=== PATIENT | female | born 1955 | race Caucasian/White ===

== ENCOUNTER → 2020-07-09 | Outpatient (CLI) | payer BC | LOC: KOH-I 10:56 | DX: M79.671 Pain in right foot (principal); S93.144A Subluxation of metatarsophalangeal joint of right lesser toe(s), initial encounter; X58.XXXA Exposure to other specified factors, initial encounter | CPT/HCPCS: 73630 ==

== ENCOUNTER → 2020-09-06 | Outpatient (CLI) | payer MEDICARE | LOC: KOH-I 08:00 | DX: M79.671 Pain in right foot (principal); G89.29 Other chronic pain; M89.8X7 Other specified disorders of bone, ankle and foot; R93.6 Abnormal findings on diagnostic imaging of limbs | CPT/HCPCS: 73718 ==

== ENCOUNTER 2021-10-31 00:14 | Emergency (ER) | payer MEDICARE ==
[2021-10-31 00:50] LABS: HEMOGLOBIN 11.6 gm/dl (12.3-15.3); RED BLOOD COUNT 4.01 M/UL (4.00-5.10); WHITE BLOOD COUNT 19.1 K/UL (4.5-11.0)
[2021-10-31 01:25] LABS: BUN/CREATININE RATIO 15 (0-10)
== END 2021-10-31 04:30 | disposition home or self-care (01) ==
LOC: ER1 00:14
PROVIDERS: Family Medicine
DX: T82.594A Other mechanical complication of infusion catheter, initial encounter (principal); R00.1 Bradycardia, unspecified; I95.9 Hypotension, unspecified; K21.9 Gastro-esophageal reflux disease without esophagitis; I10 Essential (primary) hypertension; Z88.0 Allergy status to penicillin; X58.XXXA Exposure to other specified factors, initial encounter
CPT/HCPCS: 80053; 82550; 82553; 83605; 83735; 84439; 84443; 84484; 85025; 93005; 99284